=== PATIENT | male | born 1955 | race Caucasian/White ===

== ENCOUNTER 2016-09-30 15:41 | Emergency (ER) | payer BC, OTHER ==
[2016-09-30] MEDS ORDERED: Ketorolac 60 MG/2 ML SDV IM ONE (16:11)
--- NOTE | 2016-09-30 16:18 | EDM.PDOC ---
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 He says it was not directly impacted but that his foot twisted as he was trying to move quickly out of the way of a car that was coming at him. He has been trying to rest it but he has not been taking any medications for the pain. He is concerned because it singleton and hurts when he walks. He has no other associated injuries or complaints. The patient denies any neurosensory changes in the distal foot and toes. He has no proximal ankle or leg pain. Review of systems: As per history of present illness and below otherwise all systems reviewed and negative. Past medical history: As per history of present illness and as reviewed below otherwise noncontributory. Surgical history: As per history of present illness and as reviewed below otherwise noncontributory. Social history: No reported history of drug or alcohol abuse. Family history: As per history of present illness and as reviewed below otherwise noncontributory. Physical exam: Gen.: Well-developed well-nourished man who is nontoxic and speaking clearly and easily in the ED. HEENT: Atraumatic, normocephalic, negative for conjunctival pallor or scleral icterus, mucous membranes moist, throat clear, neck supple, nontender, trachea midline. Lungs: Clear to auscultation, breath sounds equal bilaterally, chest nontender. Heart: S1S2, regular rate and rhythm no overt murmurs Abdomen: Soft, nondistended, nontender. Negative for masses or hepatosplenomegaly. Negative for costovertebral tenderness. Pelvis: Stable nontender. Genitourinary: Deferred. Rectal: Deferred. Extremities: Atraumatic with full range of motion of all extremities with the exception of the dorsal aspect of the right foot with her is some minimal soft tissue swelling and some ill-defined pink erythema but no ecchymosis. There is no bony tenderness no crepitus no discrete area of point tenderness. The remainder of the toes and proximal foot, heel, ankle are all nontender without defects or deformities and the proximal lower leg is also nontender, negative for cords or calf pain. Neurovascular unremarkable. Neuro: Awake, alert, oriented. Cranial nerves II through XII unremarkable. Cerebellum unremarkable. Motor and sensory unremarkable throughout. Exam nonfocal. Diagnostics: X-ray right foot Therapeutics: Toradol Elijah Impression: Right foot contusion/sprain Definitive disposition and diagnosis as appropriate pending reevaluation and review of above. Right Feet Pain Score (Numeric/FACES): 10 - Related Data Allergies Allergy/AdvReac Type Severity Reaction Status Date / Time No Known Allergies Allergy Verified 09/30/16 15:59 Home Meds: Home Meds . [No Known Home Meds] 02/11/14 [History] Social & Family History - Tobacco Use Smoking Status *Q: Unknown Ever Smoked Second Hand Smoke Exposure: No - Alcohol Use Days Per Week of Alcohol Use: 7 Number of Drinks Per Day: 4 Total Drinks Per Week: 28 - Recreational Drug Use Recreational Drug Use: No Review of Systems - Review of Systems Review Of Systems: ROS reveals no pertinent complaints other than HPI. ED EXAM, GENERAL - Physical Exam Exam: See Below (See dictation) Course - Vital Signs Last Recorded V/S: Last Vital Signs Temp 36.7 C 09/30/16 16:00 Pulse 68 09/30/16 16:00 Resp BP 141/79 H 09/30/16 16:00 Pulse Ox 95 09/30/16 16:00 - Orders/Labs/Meds Orders: Active Orders 24 hr Category Date Time Status Foot Comp Min 3V Rt [CR] Stat Exams 09/30/16 16:11 Taken DME for Discharge [COMM] Stat Oth 09/30/16 17:23 Ordered Meds: Medications Discontinued Medications Generic Name Dose Route Start Last Admin Trade Name Freq PRN Reason Stop Dose Admin Ketorolac Tromethamine 60 mg 09/30/16 16:11 09/30/16 16:44 Toradol IM 09/30/16 16:12 Not Given ONETIME ONE Departure - Departure Time of Disposition: 17:25 Disposition: Home, Self-Care 01 Condition: Good Clinical Impression: Foot contusion Qualifiers: Encounter type: initial encounter Laterality: right Qualified Code(s): S90.31XA - Contusion of right foot, initial encounter Foot sprain Qualifiers: Encounter type: initial encounter Laterality: right Qualified Code(s): S93.601A - Unspecified sprain of right foot, initial encounter - Discharge Information Forms: ED Department Discharge Additional Instructions: The following information is given to patients seen in the emergency department who are being discharged to home. This information is to outline your options for follow-up care. We provide all patients seen in our emergency department with a follow-up referral. The need for follow-up, as well as the timing and circumstances, are variable depending upon the specifics of your emergency department visit. If you don't have a primary care physician on staff, we will provide you with a referral. We always advise you to contact your personal physician following an emergency department visit to inform them of the circumstance of the visit and for follow-up with them and/or the need for any referrals to a consulting specialist. The emergency department will also refer you to a specialist when appropriate. This referral assures that you have the opportunity for followup care with a specialist. All of these measure are taken in an effort to provide you with optimal care, which includes your followup. Under all circumstances we always encourage you to contact your private physician who remains a resource for coordinating your care. When calling for followup care, please make the office aware that this follow-up is from your recent emergency room visit. If for any reason you are refused follow-up, please contact the [facility] emergency department at and ask to speak to the emergency department charge nurse. Dr Linda Campbell [address] [place] [phone] [facility]- Podiatry [address] [place] [phone] Fax: [phone] Ice and elevate as well as taking [id number] Tylenol or Motrin you have been prescribed. Use Elijah when you are working for support and to reduce swelling and remove when you go home. Please call and follow-up with one of our investor relations specialist for further care and evaluation and return to ER as needed next - My Orders Last 24 Hours: My Active Orders 09/30/16 16:11 Foot Comp Min 3V Rt [CR] Stat 09/30/16 17:23 DME for Discharge [COMM] Stat - Assessment/Plan Last 24 Hours: My Active Orders 09/30/16 16:11 Foot Comp Min 3V Rt [CR] Stat 09/30/16 17:23 DME for Discharge [COMM] Stat
[2016-09-30 17:42] VITALS: BP 142/87
--- NOTE | 2016-10-03 09:52 | CR ---
EXAM DATE: 09/30/16 PATIENT'S AGE: 60 Patient: MITCH VALENCAI Facility: [place], [place] Site . Site : [id number] Study: XRay Extremity Right Foot [id number]/4/2017 4:40:34 PM Ordering Physician: Edwige Lobato Final Report: HISTORY: Trauma. FINDINGS: Three views of the right foot are compared with 11 February 2014. There is normal alignment present. No fracture or dislocation is seen. No radiopaque foreign body is identified. IMPRESSION: No acute bony abnormality within the right foot. Dictated by Mary Alice Mcneal MD @ 09/30/2016 5:18:15 PM Dictated by: Mary Alice Mcneal MD @ 09/30/2016 17:18:20 (Electronic Signature) Report Signed by Proxy. [email or web address]
== END 2016-09-30 17:47 | disposition home or self-care (01) ==
LOC: MW.ED 15:41
DX: S93.601A Unspecified sprain of right foot, initial encounter (principal); S90.31XA Contusion of right foot, initial encounter; X50.9XXA Other and unspecified overexertion or strenuous movements or postures, initial encounter
CPT/HCPCS: 73630-26-RT; 73630-RT; 99283